=== PATIENT | female | born 1990 | race Two or more races ===

== ENCOUNTER 2019-05-16 14:13 | Emergency (ER) | payer SELFPAY ==
[~2019-05-16] VITALS: Ht 167.6 cm; Wt 75.0 kg
[2019-05-16 19:43] VITALS: BP 115/75
== END 2019-05-16 19:44 | disposition home or self-care (01) ==
LOC: ER 14:13
DX: S06.0X9A Concussion with loss of consciousness of unspecified duration, initial encounter (principal); W10.8XXA Fall (on) (from) other stairs and steps, initial encounter; Y93.89 Activity, other specified; Y92.89 Other specified places as the place of occurrence of the external cause
CPT/HCPCS: 81025; 99284